=== PATIENT | female | born 1985 | race Caucasian/White ===

== ENCOUNTER 2016-05-21 20:27 | Emergency (ER) | payer OTHER ==
[~2016-05-21] VITALS: Ht 154.9 cm; Wt 62.6 kg
[~2016-05-21 20:27] MED LIST: ACETAMINOPHEN-1 EAC1 PO; AMBIEN 10 MG TA10 MG PO; AMOXICILLIN 50500 M1 PO; AMOXICILLIN500 M1 PO; AMOXICILLIN875 MG PO; AMOXIL 875 MG875 M2 PO; AUGMENTIN 875875 MG PO; BACTRIM DS TAB1 EACH PO; CLARITIN10 MG PO; CLEOCIN HCL300 MG PO; CLINDAMYCIN HC150 MG OR; FLEXERIL PO; FLONASE 0.05%50 MCG NS; HYDROCODON-ACE1 EAC7 PO; IBUPROFEN 600600 M1 PO; IBUPROFEN 800800 M1 PO; IBUPROFEN 800800 MG PO; KEFLEX500 MG PO; LIDOCAINE VISC100 M1 MM; LORTAB 5 MG/5001 TA1 PO; MACROBID 100 M100 M1 PO; MECLIZINE 25 MG25 M1 PO; MOBIC15 MG PO; NAPROSYN500 MG PO; NEURONTIN 300300 M1 PO; NOHOMEMEDICATIONS; NORCO 5-325 TA1 EACH PO; PENICILLIN V P250 MG PO; PENICILLIN V P500 MG PO; PENICILLIN VK500 M1 PO; PENICILLIN VK500 MG PO; PREDNISONE 20 M20 MG PO; PRENATAL; PRENATAL COMPL1 EACH PO; PRENATAL PO; PYRIDIUM200 MG PO; SERTRALINE HCL50 MG PO; TORADOL 10 MG T10 MG PO; TRAMADOL 50 MG50 MG; TRAMADOL 50 MG50 MG PO; TRAZODONE HCL100 MG PO; TRAZODONE HCL50 MG PO; ULTRAM 50MG TAB50 MG PO; VEETIDS 500500 MG PO; VICODIN 5-5001 EACH PO; ZANTAC 150MG T150 M1; ZOLOFT25 MG PO
[2016-05-21] MEDS ORDERED: IBUPROFEN 800800 M1 PO (21:42)
[2016-05-21] MEDS ORDERED: PENICILLIN V P500 MG PO (21:42)
[2016-05-21] MEDS ORDERED: TRAMADOL 50 MG50 MG PO (21:42)
[2016-05-21 22:22] VITALS: BP 129/90
[2016-05-22] MEDS ORDERED: ZOLOFT50 MG PO (23:01)
[2016-05-22] MEDS ORDERED: TRAZODONE 150150 M1 PO (23:01)
[2016-05-22] MEDS ORDERED: NEURONTIN600 MG PO (23:01)
[2016-06-22] MEDS ORDERED: AMOXICILLIN 50500 M1 PO (09:31)
== END 2016-05-21 22:22 | disposition home or self-care (01) ==
LOC: ER 20:27
DX: K04.7 Periapical abscess without sinus (principal); F31.9 Bipolar disorder, unspecified; F32.9 Major depressive disorder, single episode, unspecified; F41.9 Anxiety disorder, unspecified; F43.10 Post-traumatic stress disorder, unspecified; Z88.6 Allergy status to analgesic agent; F17.210 Nicotine dependence, cigarettes, uncomplicated

== ENCOUNTER 2016-05-22 22:53 | Emergency (ER) | payer OTHER ==
[~2016-05-22] VITALS: Ht 154.9 cm; Wt 62.6 kg
[2016-05-22] MEDS ORDERED: ZOLOFT50 MG PO (23:01)
[2016-05-22] MEDS ORDERED: TRAZODONE 150150 M1 PO (23:01)
[2016-05-22] MEDS ORDERED: NEURONTIN600 MG PO (23:01)
[2016-05-23] MEDS ORDERED: CLEOCIN HCL150 MG PO (02:41)
[2016-05-23 02:55] VITALS: BP 113/65
[2016-06-22] MEDS ORDERED: AMOXICILLIN 50500 M1 PO (09:31)
== END 2016-05-23 02:55 | disposition home or self-care (01) ==
LOC: ER 22:53
DX: K04.7 Periapical abscess without sinus (principal); L03.211 Cellulitis of face; F31.9 Bipolar disorder, unspecified; F43.10 Post-traumatic stress disorder, unspecified; F41.9 Anxiety disorder, unspecified; F17.210 Nicotine dependence, cigarettes, uncomplicated; F15.21 Other stimulant dependence, in remission; Z88.5 Allergy status to narcotic agent

== ENCOUNTER 2016-11-15 18:01 | Emergency (ER) | payer OTHER ==
[~2016-11-15] VITALS: Ht 165.1 cm; Wt 61.2 kg
[~2016-11-15 18:01] MED LIST changes: +CLEOCIN HCL150 MG PO; +NEURONTIN600 MG PO; +TRAZODONE 150150 M1 PO; +ZOLOFT50 MG PO
[2016-11-15 18:09] VITALS: BP 132/78
[2016-11-15] MEDS ORDERED: CLEOCIN HCL150 MG PO (18:25)
[2016-11-15] MEDS ORDERED: NORCO 5-325 TA1 EACH PO (18:25)
== END 2016-11-15 18:35 | disposition home or self-care (01) ==
LOC: ER 18:01
DX: K02.9 Dental caries, unspecified (principal); F31.9 Bipolar disorder, unspecified; F41.9 Anxiety disorder, unspecified; F43.10 Post-traumatic stress disorder, unspecified; F17.210 Nicotine dependence, cigarettes, uncomplicated; Z88.5 Allergy status to narcotic agent

== ENCOUNTER 2016-12-04 10:40 | Emergency (ER) | payer OTHER ==
[~2016-12-04] VITALS: Ht 154.9 cm; Wt 58.1 kg
[2016-12-04] MEDS ORDERED: MOBIC7.5 MG PO (11:08)
[2016-12-04] MEDS ORDERED: CLEOCIN HCL150 MG PO (11:08)
[2016-12-04 11:34] VITALS: BP 123/81
== END 2016-12-04 11:30 | disposition home or self-care (01) ==
LOC: ER 10:40
DX: K04.7 Periapical abscess without sinus (principal); K02.9 Dental caries, unspecified; F31.9 Bipolar disorder, unspecified; F43.10 Post-traumatic stress disorder, unspecified; F41.9 Anxiety disorder, unspecified; F17.210 Nicotine dependence, cigarettes, uncomplicated; Z88.5 Allergy status to narcotic agent

== ENCOUNTER 2017-01-11 14:00 | Emergency (ER) | payer OTHER ==
[~2017-01-11] VITALS: Ht 154.9 cm; Wt 57.6 kg
[~2017-01-11 14:00] MED LIST changes: +MOBIC7.5 MG PO; +NORCO 5-325 TA1 EAC1 PO
[2017-01-11 14:04] VITALS: BP 120/76
[2017-01-11] MEDS ORDERED: ZOLOFT50 MG PO (14:35)
[2017-01-11] MEDS ORDERED: TRAZODONE HCL100 MG PO (14:36)
[2017-01-11] MEDS ORDERED: GABAPENTIN800 M1 PO (14:53)
== END 2017-01-11 15:51 | disposition home or self-care (01) ==
LOC: ER 14:00
DX: Z76.0 Encounter for issue of repeat prescription (principal); F31.9 Bipolar disorder, unspecified; F43.10 Post-traumatic stress disorder, unspecified; G40.909 Epilepsy, unspecified, not intractable, without status epilepticus; F41.9 Anxiety disorder, unspecified; F17.210 Nicotine dependence, cigarettes, uncomplicated; Z88.5 Allergy status to narcotic agent